=== PATIENT | male | born 1970 | race Caucasian/White ===

== ENCOUNTER 2024-03-20 09:59 | Observation (INO) ==
[~2024-03-20 09:59] MED LIST: Naloxone 0.4 mg VIAL 0.4 mg/ml 1 ml VIAL IV PRN; Phenylephrine IV 10 MG/ML 1 ml VIAL ONE; Propofol 0 MG/0 ML BTL ONE
[2024-03-20] MEDS ORDERED: Tranexamic Acid 1 GM/100ML BAG 2,000 MG/200 ML BAG IV ONE (10:41)
[2024-03-20 10:43] LABS: Rapid COVID-19 Molecular Undetected (Undetected)
[2024-03-20] MEDS ORDERED: ceFAZolin 2 GM in NS PREMIX 2 GM/100 ML BAG IVPB ONE (10:56)
[2024-03-20] MEDS: Buffered Lidocaine 1% SYRIN 1 ml INTRADERM ONE (10:59)
[2024-03-20] MEDS: Lactated Ringers 1000 ml BAG 1,000 ML IV SCH ×2 (11:00→18:52)
[2024-03-20] MEDS ORDERED: Midazolam 5 mg/5 ml VIAL 1 mg/ml 5 ml VIAL (5 mg) ONE (12:27)
[2024-03-20] MEDS ORDERED: ROPIVACAINE 5 MG/ML 30 ML BTL (0.5%) ONE ×2 (12:27→12:45)
[2024-03-20] MEDS ORDERED: Glycopyrrolate IV 0.2 MG/ML 1 ML VIAL ONE (13:34)
[2024-03-20] MEDS ORDERED: KETAMINE HCL 10 MG/ML 20 ml VIAL (200 MG) ONE (13:34)
[2024-03-20] MEDS ORDERED: ceFAZolin VIAL VIAL ONE (13:36)
[2024-03-20] MEDS ORDERED: Lidocaine 2% PF 5 ML VIAL ONE (13:36)
[2024-03-20] MEDS ORDERED: Ondansetron 4 mg VIAL 2 MG/ML 2 ml VIAL IV PRN (13:44)
[2024-03-20] MEDS ORDERED: Ondansetron ODT 4 mg TAB 4 MG TAB PO PRN (13:44)
[2024-03-20] MEDS ORDERED: Magnesium Hydroxide LIQ 30 ML UDC PO PRN (13:44)
[2024-03-20] MEDS ORDERED: Lactulose 30 ml UDC PO PRN (13:44)
[2024-03-20] MEDS ORDERED: Calcium Carb (TUMS) 500 mg CHEW TAB PO PRN (13:44)
[2024-03-20] MEDS ORDERED: Propofol 10 MG/ML 20 ML BTL ONE ×4 (14:05→15:39)
[2024-03-20] MEDS ORDERED: HYDROmorphone 1 MG/1 ML SYRINGE ONE ×2 (16:15→17:00)
[2024-03-20] MEDS: HYDROmorphone 1 MG/1 ML SYRINGE IV PRN (16:16)
[2024-03-20] MEDS ORDERED: fentaNYL 100 mcg/2 ml 50 MCG/ML VIAL IV SLOW PU PRN (17:20)
[2024-03-20] MEDS: Magnesium Hydroxide LIQ 30 ML UDC PO SCH (20:27)
[2024-03-20] MEDS: ceFAZolin 2 GM in NS PREMIX 2 GM/100 ML BAG IVPB SCH (23:09)
[2024-03-21] MEDS: Morphine 2 MG/ML SYRINGE IV PRN (00:26)
[2024-03-21 06:56] LABS: Anion Gap 9 mmol/L (2-16); Blood Urea Nitrogen 11 mg/dL (6-24); CO2 Carbon Dioxide 21 mmol/L (22-32); Calcium 8.5 mg/dL (8.6-10.3); Chloride 103 mmol/L (101-111); Creatinine, Serum 0.74 mg/dL (0.67-1.17); Glucose 107 mg/dL (70-100); Sodium 133 mmol/L (135-145); eGFR CKD-EPI 108.3 (>60)
[2024-03-21 07:34] LABS: Hematocrit 37.2 % (38-53); Hemoglobin 12.2 g/dL (13.2-16.3); Mean Platelet Volume 10.4 fL (7.5-11.2); Platelet Count 174 10^3/uL (150-450)
[2024-03-21] MEDS: Vitamin THERAPEUTIC TAB PO SCH (07:57)
[2024-03-21 10:34] VITALS: BP 132/80
== END 2024-03-21 14:20 | disposition home or self-care (01) ==
LOC: OR 09:59 → SSU 09:59
PROVIDERS: ADMIT Orthopaedic Surgery Adult Reconstructive Orthopaedic Surgery; ATTEND Orthopaedic Surgery Adult Reconstructive Orthopaedic Surgery